=== PATIENT | female | born 1965 | race Caucasian/White ===

== ENCOUNTER → 2017-09-06 | Outpatient (CLI) | payer BC | LOC: MAMMO 17:01 | PROVIDERS: ATTEND Internal Medicine | DX: Z12.31 Encounter for screening mammogram for malignant neoplasm of breast (principal) | CPT/HCPCS: 77067 ==

== ENCOUNTER → 2017-09-23 | Outpatient (CLI) | payer BC ==
--- NOTE | 2017-09-23 15:32 | Diagnostic Imaging Report ---
#[id number] - USBRECOMRT ULTRASOUND OF THE RIGHT BREAST : 09/23/2017 Comparison is made to exams dated: 09/23/2017 mammogram and 09/06/2017 mammogram - [facility]. Color flow and real-time ultrasound were performed on the entire right breast with scanning in all four quadrants, retroareolar region and the right axilla. There is no cystic or solid mass identified. IMPRESSION: NEGATIVE There is no sonographic evidence of malignancy. A 1 year screening mammogram is recommended. Chino Raymond Jr., D.O. cw/:09/23/2017 13:45:52 Bar Pointer: MARTINA WEISS, [facility] letter sent: Normal Exam Ultrasound BI-RADS: 1 Negative
--- NOTE | 2017-09-23 15:32 | Diagnostic Imaging Report ---
#[id number] - MGDXRT #UNILATERAL RIGHT DIGITAL DIAGNOSTIC MAMMOGRAM WITH SPOT COMPRESSION: 09/23/2017 Comparison is made to exam dated: 09/06/2017 mammogram - [facility]. Current study contains 6 films. There are scattered fibroglandular elements in the right breast. The densities previously described persist with focal spot compression. Right breast ultrasound will be performed today. IMPRESSION: INCOMPLETE: NEEDS ADDITIONAL IMAGING EVALUATION Follow-up with ACR/ACS guidelines. Persistent densities in the right breast. Ultrasound is recommended and will be performed today. Chino Raymond Jr., D.O. cw/:09/23/2017 13:44:02 Certified [employer] Officer: Azra WEISS(R)(M), [facility] letter sent: Additional Imaging Needed Mammogram BI-RADS: 0 Indeterminate
== END ==
LOC: MAMMO 12:04
PROVIDERS: ATTEND Internal Medicine
DX: Z12.31 Encounter for screening mammogram for malignant neoplasm of breast (principal)

== ENCOUNTER → 2017-11-08 | Outpatient (CLI) | payer BC ==
--- NOTE | 2017-11-08 18:12 | Diagnostic Imaging Report ---
EXAM: Transabdominal Pelvic Ultrasound INDICATION: \[id number] \[id number] COMPARISON: None TECHNIQUE: Grayscale transverse and sagittal transabdominal were obtained of the pelvis. CLINICAL HISTORY: 52 year old A0; last menstrual period: n/a. FINDINGS: Uterus Orientation: Normal Size: 7.8 x 3.1 x 5 cm, Normal Mass: None Cervix: Normal Endometrium: Thickness: 0.3 cm, Normal. Appearance: Homogeneous echotexture without focal thickening. Right ovary: Size: 2.5 x 1.8 x 1.8 cm Mass/Cyst: None Left ovary: Not visualized secondary to overlying bowel gas. Adnexa: Normal Cul-de-sac: No free fluid IMPRESSION: Left ovary not visualized. Otherwise, unremarkable transabdominal pelvic ultrasound exam. Signed by: DR. Fernando Pedro MD on 11/08/2017 6:08 PM
== END ==
LOC: US 16:52
PROVIDERS: ATTEND Internal Medicine
DX: R10.9 Unspecified abdominal pain (principal); A60.00 Herpesviral infection of urogenital system, unspecified
CPT/HCPCS: 76856

== ENCOUNTER → 2018-02-03 | Outpatient (CLI) | payer BC ==
--- NOTE | 2018-02-03 15:42 | Diagnostic Imaging Report ---
Exam: Lumbar spine AP lateral oblique and sacrum History: Pain Comparison: None. Findings: No acute fracture. Multilevel degenerative endplate change with mild narrowing at L3-L4 and L5-S1. Mild facet arthrosis L4-5 L5-S1. Mild sacroiliac degenerative arthrosis. Impression: No acute osseous abnormality. Mild degenerative disc disease L3-L4 and L5-S1. Mild facet arthrosis L4-5 and L5-S1. Signed by: Dr. Nickolas Parmar M.D. on 02/03/2018 3:38 PM
== END ==
LOC: RAD 14:44
PROVIDERS: ATTEND Internal Medicine
DX: M47.27 Other spondylosis with radiculopathy, lumbosacral region (principal)
CPT/HCPCS: 72110; 72220

== ENCOUNTER → 2018-05-08 | Outpatient (CLI) | payer BC ==
[~2018-05-08] MED LIST: IOPAMIDOL 370 MG/ML 200 ML INFUS..BTL INJ ONE; SODIUM CHLORIDE 0.9% 250ML 250 ML ONE; SODIUM CHLORIDE 0.9% 500ML 500 ML ONE; SODIUM CHLORIDE 0.9% 50ML 0 ML ONE; SODIUM CHLORIDE 0.9% 50ML 50 ML ONE
--- NOTE | 2018-05-08 15:46 | Diagnostic Imaging Report ---
EXAMINATION: CT of the abdomen and pelvis with contrast. TECHNIQUE: Spiral CT images of the abdomen and pelvis were performed from the lung bases to the lesser trochanters after the intravenous administration of 100 cc Isovue-370 and the oral administration of water. Coronal and sagittal reformatted images were obtained. COMPARISON: None. CLINICAL HISTORY:Concern for abscess. Patient reports history of prior section, tubal ligation, cholecystectomy, nephrectomy. DISCUSSION: ABDOMEN/PELVIS: LOWER THORAX:Unremarkable. HEPATOBILIARY: Hepatic parenchyma is diffusely hypoattenuating compatible with steatosis. Dystrophic calcification in segment 7. Otherwise no focal hepatic lesion or intrahepatic biliary ductal dilatation. The gallbladder has been removed. SPLEEN: No splenomegaly. PANCREAS: No focal masses or ductal dilatation. ADRENALS: No adrenal nodules. KIDNEYS/URETERS: Status post left nephrectomy. No abnormal mass in the left renal fossa. The right kidney shows no hydronephrosis, calculus, or solid or cystic mass lesion. PELVIC ORGANS/BLADDER: The urinary bladder is incompletely distended but otherwise unremarkable. The uterus is anteflexed and appears normal. Bilateral tubal ligation clips. No adnexal mass. PERITONEUM/RETROPERITONEUM: No ascites. No pneumoperitoneum. LYMPH NODES: No pelvic sidewall, retroperitoneal, or mesenteric lymphadenopathy. VESSELS: Atherosclerotic calcification of the abdominal aorta, major branch vessels, and iliac arterial systems without aneurysmal dilatation. Portal vein, splenic vein, and central superior mesenteric vein are patent. GI TRACT: The large bowel is notable for multiple diverticula along the sigmoid and to a lesser extent the descending colon, without wall thickening or adjacent inflammatory change. The appendix is normal. There is no small bowel dilatation to suggest obstruction. BONES AND SOFT TISSUE: No focal soft tissue abnormalities other than a small fat-containing umbilical hernia. no osseous destructive lesions. IMPRESSION: No acute intra-abdominal or pelvic CT abnormalities. No abdominal or pelvic abscess per clinical query. Large bowel diverticulosis without findings of diverticulitis. Hepatic steatosis. Atherosclerotic vascular disease. Status post left nephrectomy. Signed by: Dr. Kurtis Farah M.D. on 05/08/2018 3:43 PM
== END ==
LOC: CT 13:01
PROVIDERS: ATTEND Internal Medicine
DX: L02.211 Cutaneous abscess of abdominal wall (principal)
CPT/HCPCS: 74177; 96360; J7040; J7050; Q9967

== ENCOUNTER → 2018-09-03 | Outpatient (CLI) | payer BC | LOC: MAMMO 11:33 | PROVIDERS: ATTEND Internal Medicine | DX: Z12.31 Encounter for screening mammogram for malignant neoplasm of breast (principal) | CPT/HCPCS: 77067 ==